=== PATIENT | male | born 1975 | race Caucasian/White ===

== ENCOUNTER 2019-12-28 07:01 | Inpatient (IN) ==
[2019-12-22 13:42] LABS: Amphetamine Screen,Urine NONE DETECTED (NONDETECTED); Barbiturate Screen,Urine NONE DETECTED (NONDETECTED); Benzodiazepines Screen,Urine NONE DETECTED (NONDETECTED); Cannabinoid Screen,Urine SUSPECT POSITIVE (NONDETECTED); Cocaine Screen,Urine NONE DETECTED (NONDETECTED); Opiate Screen,Urine NONE DETECTED (NONDETECTED); Oxycodone, Urine Screen NONE DETECTED (NONDETECTED); Phencyclidine Screen,Urine NONE DETECTED (NONDETECTED)
[2019-12-22 14:10] LABS: Appearance,Urine CLOUDY; Bacteria,Urine 0 /hpf (0); Bilirubin,Urine NEG (NEG); Color,Urine YELLOW; Culture Indicated,Urine NO; Glucose,Urine (UA) NEGATIVE (NEG); Ketones,Urine NEG (NEG); Leukocyte Esterase,Urine 75 /uL (NEG); Mucus,Urine FEW /hpf (0); Nitrate,Urine NEG (NEG); Protein,Urine NEG (NEG); Sperm,Urine PRESENT /hpf (ABSENT); Urine Blood NEG mg/dL (<0.03); Urine RBC 1 /hpf (0-1); Urine Squamous Epithelial Cell < 1 /hpf (0-4); Urine WBC 1 /hpf (0-4); Urobilinogen,Urine NEG (NEG)
[2019-12-22 14:24] LABS: Basophils # (Auto) 0.04 K/mcL (0.00-0.30); Basophils % (Auto) 0.6 % (0.0-2.0); Eosinophils # (Auto) 0.06 K/mcL (0.00-0.70); Eosinophils % (Auto) 0.9 % (0.0-7.0); Granulocytes % (Auto) 79.5 % (38.0-78.0); Hematocrit 49.8 % (40.1-51.0); Hemoglobin 16.5 g/dL (13.7-17.5); Lymphocytes # (Auto) 0.85 K/mcL (1.50-4.80); Lymphocytes % (Auto) 12.8 % (15.5-49.0); Mean Cell Volume 90.4 fL (80.0-100.0); Mean Corpuscular HGB Conc 33.1 g/dL (31.0-36.0); Mean Platelet Volume 10.6 fL (7.4-10.4); Monocytes # (Auto) 0.41 K/mcL (0.10-0.90); Monocytes % (Auto) 6.2 % (1.0-12.0); Platelet Count 217 K/mcL (140-440); RBC 5.51 M/mcL (4.63-6.08); Red Cell Distribution Width 15.3 % (11.5-14.5); WBC 6.6 K/mcL (4.50-11.00)
[2019-12-22 17:04] LABS: Blood Urea Nitrogen 6 mg/dl (6-20); Calcium 9.7 mg/dl (8.6-10.4); Carbon Dioxide 26 mmol/L (22-30); Chloride 101 mmol/L (96-108); Glomerular Filtration Rate 116; Glucose 90 mg/dL (70-105)
[~2019-12-28 07:01] MED LIST: ACETAMINOPHEN 500 MG TABLET PO SCH; CELECOXIB 200 MG CAPSULE PO SCH; GABAPENTIN 300 MG CAPSULE PO SCH; IPRATROPIUM/ALBUTEROL 3 ML AMPUL.NEB NEB PRN; SCOPOLAMINE 1 PATCH PATCH TOPICAL PRN; ceFAZolin 2 GM in DEXTROSE 5% IN WATER 50 ML IV SCH; oxyCODONE 10 MG TAB.ER.12H PO SCH
[2019-12-28] MEDS ORDERED: HYDROmorphone 1 MG/ML SYRINGE ONE (09:00)
[2019-12-28] MEDS ORDERED: fentaNYL 100 MCG/2 ML VIAL IV ONE (09:00)
[2019-12-28] MEDS ORDERED: GLYCOPYRROLATE 0.2 MG/ML VIAL IV ONE (09:00)
[2019-12-28] MEDS ORDERED: PHENYLEPHRINE 10 MG/ML VIAL ONE (09:00)
[2019-12-28] MEDS ORDERED: LIDOCAINE HCL/PF 100 MG/5 ML SYRINGE IV ONE (09:00)
[2019-12-28] MEDS ORDERED: ROCURONIUM 10 MG/ML ML IV ONE (09:00)
[2019-12-28] MEDS ORDERED: DEXAMETHASONE 10 MG/ML VIAL ONE (09:00)
[2019-12-28] MEDS ORDERED: MIDAZOLAM 5 MG/5 ML VIAL ONE (09:00)
[2019-12-28] MEDS ORDERED: PROPOFOL 200 MG/20 ML VIAL IV ONE (09:00)
[2019-12-28] MEDS ORDERED: ePHEDrine 50 MG/ML AMPUL IV ONE (09:00)
[2019-12-28] MEDS ORDERED: SUCCINYLCHOLINE 20 MG/ML ML IV ONE (09:00)
[2019-12-28] MEDS ORDERED: KETAMINE HCL 50 MG/ML ML ONE (09:00)
[2019-12-28] MEDS ORDERED: ONDANSETRON 4 MG/2 ML VIAL ONE (09:00)
[2019-12-28] MEDS ORDERED: SUGAMMADEX SODIUM 200 MG/2 ML VIAL IV ONE (09:00)
[2019-12-28] MEDS ORDERED: GENTAMICIN SULFATE 800 MG/20 ML VIAL IR ONE (09:28)
[2019-12-28] MEDS ORDERED: fentaNYL 100 MCG/2 ML VIAL IV PRN (10:01)
[2019-12-28] MEDS ORDERED: FLUMAZENIL 0.1 MG/ML ML IV PRN (10:01)
[2019-12-28] MEDS ORDERED: BENZOCAINE/MENTHOL 1 LOZENGE PO PRN ×2 (10:01→10:37)
[2019-12-28] MEDS ORDERED: METHOCARBAMOL 1,000 MG/10 ML VIAL IV PRN (10:01)
[2019-12-28] MEDS ORDERED: MEPERIDINE 25 MG/ML SYRINGE IV PRN (10:01)
[2019-12-28] MEDS ORDERED: LABETALOL 5 MG/ML ML IV PRN (10:01)
[2019-12-28] MEDS ORDERED: IPRATROPIUM/ALBUTEROL 3 ML AMPUL.NEB NEB PRN (10:01)
[2019-12-28] MEDS ORDERED: MEPERIDINE 50 MG/ML INJECTION IM PRN (10:01)
[2019-12-28] MEDS ORDERED: LACTATED RINGERS 250 ML IV PRN (10:01)
[2019-12-28] MEDS ORDERED: HYDROmorphone 0.5 MG/0.5 ML SYRINGE IV PRN (10:01)
[2019-12-28] MEDS ORDERED: METOPROLOL TARTRATE 5 MG/5 ML VIAL IV PRN (10:01)
[2019-12-28] MEDS ORDERED: PROMETHAZINE 25 MG/ML VIAL IM PRN (10:01)
[2019-12-28] MEDS ORDERED: ONDANSETRON 4 MG/2 ML VIAL IV PRN ×2 (10:01→10:37)
[2019-12-28] MEDS ORDERED: LACTATED RINGERS 1,000 ML IV SCH ×2 (10:15→10:45)
[2019-12-28] MEDS ORDERED: TRANEXAMIC ACID 1,000 MG/10 ML VIAL IV SCH (10:37)
[2019-12-28] MEDS ORDERED: POLYETHYLENE GLYCOL 3350 17 GM PACKET PO PRN (10:37)
[2019-12-28] MEDS ORDERED: KETOROLAC 15 MG/ML VIAL IV PRN (10:37)
[2019-12-28] MEDS ORDERED: BISACODYL 10 MG SUPP.RECT PR PRN (10:37)
[2019-12-28] MEDS ORDERED: FLEETS ADULT ENEMA PR PRN (10:37)
[2019-12-28] MEDS ORDERED: HYDROcodone/APAP 10/325MG TABLET PO PRN (10:37)
[2019-12-28] MEDS ORDERED: HYDROmorphone 1 MG/ML SYRINGE IV PRN (10:37)
[2019-12-28] MEDS ORDERED: ACETAMINOPHEN 325 MG TABLET PO PRN (10:37)
[2019-12-28] MEDS ORDERED: MAGNESIUM HYDROXIDE 30 ML ORAL.SUSP PO PRN (10:37)
--- NOTE | 2019-12-28 10:45 | Brief Operative Note ---
Brief Operative Note Date of procedure: 12/28/19 Pre-op diagnosis: Right shoulder djd Post-op diagnosis: same Procedure: right shoulder failed jacob arthroplasty Grafts/Implants: Yes Anesthesia: GETA Complications: none Surgeon: Reid Bar Geodesist: Paul Silver Estimated blood loss (cc): 120 Tourniquet Time (Minutes): 0 Specimens Removed/Pathology: none sent Condition: stable Disposition: PACU
[2019-12-28] MEDS ORDERED: ONDANSETRON 4 MG ODT TABLET SL PRN (10:47)
--- NOTE | 2019-12-28 11:06 | Operative Note ---
DATE OF OPERATION: 12/28/2019 PREOPERATIVE DIAGNOSIS: Right shoulder arthritis with a prior hemiarthroplasty. POSTOPERATIVE DIAGNOSIS: Right shoulder arthritis with a prior hemiarthroplasty. PROCEDURE: Right total shoulder with removal of prior hemiarthroplasty, conversion to a total shoulder arthroplasty with Law components. SURGEON: Reid Bar M.D. ATTENDING AMBULATORY CARE: Paul Silver PA-C. The PA's assistance was required for the safe and efficient completion of the entire case. This provider's expertise and technical skill were required throughout the case. The PA assisted with preoperative coordination, intraoperative retraction, wound closure, dressing and splint application, as well as postoperative documentation and care coordination. ANESTHESIA: General LMA anesthesia. COMPLICATIONS: None. ESTIMATED BLOOD LOSS: About 120 mL. IMPLANTS: Size 14 stem with a 52 head and glenoid, humeral head was an eccentric head. DISPOSITION: PACU. DESCRIPTION OF PROCEDURE: The patient was brought to the operating room and put to sleep with general LMA anesthesia. Once asleep, the patient had the right shoulder sterilely prepped and draped in the usual sterile fashion. A timeout was performed. Once done, the patient was then confirmed as the operative site by initials, consent form, and x-rays. We then placed Ioban over the skin. It was noted that he had some ringworm in his armpit in three separate locations. At this point, after being sterilely prepped, we placed Ioban over the skin to isolate the skin in the operative field. We then were able to make a deltopectoral approach, exposing the shoulder, releasing the lesser tuberosity and subscap muscle attachment point. There were sutures in the subscap from a prior surgery. These were removed. We then subluxed the humeral head. We made the neck cut around the area of the hemiarthroplasty. This was fairly well grown in. We then used the osteotome to help loosen this and this was then dislodged with an osteotome and a fish-mouth impactor. Once this was removed, we irrigated thoroughly and made our new cut using 20 degrees of retroversion and then placing the trial. We then subluxed the humeral head posteriorly, identified the glenoid. We performed a 360-degree capsular release, placed a pin centrally and then reamed up to the size 52. A 52 component seemed to cover the glenoid the best. We made the four holes and then we trialed. This seemed to fit very nicely. We then implanted the 52 glenoid. Once this was secure, we then prepared the humeral side. This was broached up to a size 14. A size 14 with an eccentric head was used. This fit very nicely and covered the bone near anatomically. We irrigated thoroughly and then we implanted the size 14 stem with a small amount of cement distally and a 52 eccentric humeral head. We reduced the shoulder. We repaired the subscap and the bony fragment through drill holes and then oversewed with FiberWire. The patient tolerated this well. I took the patient through the range of motion at the end of the case. Nothing seemed to impinge. We were able to then irrigate thoroughly and closed the interval with 3-0 Stratafix and closed the skin with 2-0 Vicryl and adhesive closure. The patient tolerated this well. No complications. Blood loss was 120 mL. RBH:haja Job ID: [id number] Doc ID: [id number] Reid Bar MD
--- NOTE | 2019-12-28 11:07 | Discharge Plan ---
Discharge Instructions - TSA Patient Instructions Total Shoulder Protocol: Leave immobilizer in place except for bathing and ROM. Abduction pillow. Continue to wear sling until seen by physician. Codman Pendulum : These exercises use momentum produced by your body to move your shoulder joint. Bend your knees and shift your weight to your front leg, then back, allowing your arm to swing in the same directions. Using the same technique, alternately shift your weight between your right and left legs, allowing your arm to swing from side to side. These exercises are also performed in counterclockwise and clockwise circular motions. Typically these exercises are performed several times per day, for a set number repetitions or minutes, such as 20 times in a row or 5 minutes at a time. Discharge Plan Patient/Caregiver Discharge Instructions Activity: as per physical therapy Diet: Regular Diet Prescriptions: New hydrocodone-acetaminophen 10-325 mg Tablet 1 - 2 tab PO Q4HP PRN (Reason: Pain Level 3-6) Qty: 75 RF: 0 docusate sodium 100 mg Capsule 100 mg PO BID Qty: 60 RF: 0 No Action buprenorphine HCl 8 mg Tablet, Sublingual 8 mg SUBLINGUAL BID RF: 0 sertraline 100 mg Tablet 100 mg PO QDAY RF: 0 gabapentin 300 mg Capsule 300 mg PO TID RF: 0 ondansetron 4 mg Tablet,Disintegrating 8 mg PO Q12 PRN (Reason: Nausea) RF: 0 Other Ambulatory Orders: Brace/Splint (ONCE) Location: None Selected Ordered By: Paul Silver Physical Therapy MA - TSA (Routine) Location: None Selected Ordered By: Paul Silver Follow Up Plan Follow up with: Paul Silver PA-C [Physician Principal Quality Engineer] - Patient Disposition: Home, Self-Care Prognosis: Good Rehab Potential: Good I certify that the patient requires SNF services: No Overall status at discharge: patient is progressing back to baseline Discharge Orders: Discharge Order (Routine); Ordered 12/29/19 Ordered By: Paul Silver
[2019-12-28] MEDS ORDERED: LORazepam 2 MG/ML VIAL IV ONE (11:12)
--- NOTE | 2019-12-28 12:14 | XRay Report ---
CLINICAL INFORMATION: Post-OP Total Shoulder COMPARISON: None. FINDINGS: Shoulder prostheses in near anatomic alignment. No osseous abnormality. Soft tissues IMPRESSION: Negative Interpreted and Authenticated by: Truman Montemayor 12/28/19
[2019-12-28] MEDS ORDERED: 0.9 % SODIUM CHLORIDE 10 ML SYRINGE IV SCH (14:00)
[2019-12-28] MEDS ORDERED: GABAPENTIN 300 MG CAPSULE PO SCH (15:00)
[2019-12-28] MEDS ORDERED: ceFAZolin 1 GM VIAL IV SCH (16:30)
[2019-12-28] MEDS ORDERED: SENNOSIDES 1 TABLET PO SCH (21:00)
[2019-12-28] MEDS ORDERED: TEMAZEPAM 15 MG CAPSULE PO PRN (21:00)
[2019-12-28] MEDS ORDERED: DOCUSATE SODIUM 100 MG CAPSULE PO SCH (21:00)
[2019-12-29] MEDS ORDERED: SERTRALINE 100 MG TABLET PO SCH (09:00)
[2020-01-01 16:34] LABS: Cannabinoid Confirmation POSITIVE (N)
== END 2019-12-28 16:18 | disposition home or self-care (01) | DRG 483 ==
LOC: MEDSUR 07:01
PROVIDERS: ADMIT Orthopaedic Surgery; ATTEND Orthopaedic Surgery